=== PATIENT | female | born 1990 | race Caucasian/White ===

== ENCOUNTER 2016-06-03 21:05 | Emergency (ER) | payer OTHER ==
[~2016-06-03] VITALS: Ht 190.5 cm; Wt 135.1 kg
[2016-06-03] MEDS ORDERED: MOTRIN800 MG PO (21:54)
[2016-06-03] MEDS ORDERED: BACTRIM,SEPT1 TABLET PO (21:54)
[2016-06-03] MEDS ORDERED: KEFLEX500 MG PO (21:54)
[2016-06-03 22:42] VITALS: BP 127/79
== END 2016-06-03 22:43 | disposition home or self-care (01) ==
LOC: EME 21:05
DX: S00.86XA Insect bite (nonvenomous) of other part of head, initial encounter (principal); L03.211 Cellulitis of face; W57.XXXA Bitten or stung by nonvenomous insect and other nonvenomous arthropods, initial encounter; F17.210 Nicotine dependence, cigarettes, uncomplicated
CPT/HCPCS: 99281; 99284